=== PATIENT | male | born 1985 | race Caucasian/White ===

== ENCOUNTER 2019-03-29 17:23 | Emergency (ER) | payer OTHER ==
[~2019-03-29] VITALS: Ht 170.2 cm; Wt 84.4 kg
[~2019-03-29 17:23] MED LIST: Amoxicillin500 MG PO; CEPH500 PO; CLIN300 PO; CYCL10 PO; Cleocin HCl300 MG PO; Cyclobenzaprine5 MG PO; IBUP600 PO; IBUP800 PO; Norco 5-325 Ta1 EACH PO; OXYACE7.5T PO; Valium5 MG PO
[2019-03-30] MEDS ORDERED: Bactrim Ds Tab1 EACH PO (00:27)
== END 2019-03-30 00:49 | disposition home or self-care (01) ==
LOC: ER 17:23
DX: L05.91 Pilonidal cyst without abscess (principal); F17.210 Nicotine dependence, cigarettes, uncomplicated; Z88.1 Allergy status to other antibiotic agents
CPT/HCPCS: 10081; 99283-25; A9270

== ENCOUNTER 2020-06-01 21:13 | Emergency (ER) | payer OTHER ==
[~2020-06-01] VITALS: Ht 172.7 cm; Wt 83.5 kg
[~2020-06-01 21:13] MED LIST changes: +Bactrim Ds Tab1 EACH PO
[2020-06-02] MEDS ORDERED: Monodox100 MG PO (11:24)
[2020-06-02] MEDS ORDERED: Bactrim Ds Tab1 EACH PO (11:24)
== END 2020-06-01 21:26 | disposition home or self-care (01) ==
LOC: ER 21:13
DX: J34.0 Abscess, furuncle and carbuncle of nose (principal); F17.210 Nicotine dependence, cigarettes, uncomplicated; Z88.1 Allergy status to other antibiotic agents
CPT/HCPCS: 99283

== ENCOUNTER 2020-06-02 10:38 | Emergency (ER) | payer OTHER ==
[~2020-06-02] VITALS: Ht 172.7 cm; Wt 83.9 kg
[2020-06-02] MEDS ORDERED: Monodox100 MG PO (11:24)
[2020-06-02] MEDS ORDERED: Bactrim Ds Tab1 EACH PO (11:24)
== END 2020-06-02 11:35 | disposition home or self-care (01) ==
LOC: ER 10:38
DX: K13.0 Diseases of lips (principal); F17.210 Nicotine dependence, cigarettes, uncomplicated; Z88.1 Allergy status to other antibiotic agents
CPT/HCPCS: 87070; 87075; 87077; 87147; 87186; 87205; 99283

== ENCOUNTER 2021-08-24 09:22 | Emergency (ER) | payer OTHER ==
[~2021-08-24] VITALS: Ht 172.7 cm; Wt 94.3 kg
[~2021-08-24 09:22] MED LIST changes: +Monodox100 MG PO
[2021-08-24] MEDS ORDERED: CYCL10 PO (10:07)
== END 2021-08-24 10:25 | disposition home or self-care (01) ==
LOC: ER 09:22
DX: S39.012A Strain of muscle, fascia and tendon of lower back, initial encounter (principal); F17.200 Nicotine dependence, unspecified, uncomplicated; Z88.1 Allergy status to other antibiotic agents; X58.XXXA Exposure to other specified factors, initial encounter
CPT/HCPCS: 96372; 99283-25; J1885

== ENCOUNTER 2022-05-26 08:53 | Emergency (ER) | payer OTHER ==
[~2022-05-26] VITALS: Ht 172.7 cm; Wt 96.6 kg
[2022-05-26] MEDS ORDERED: SULTRIDS PO (09:49)
== END 2022-05-26 10:14 | disposition home or self-care (01) ==
LOC: ER 08:53
DX: M54.50 Low back pain, unspecified (principal); G89.29 Other chronic pain; L03.90 Cellulitis, unspecified; F17.210 Nicotine dependence, cigarettes, uncomplicated; Z88.1 Allergy status to other antibiotic agents
CPT/HCPCS: A9270; J1885

== ENCOUNTER 2023-01-21 22:50 | Emergency (ER) | payer OTHER ==
[~2023-01-21] VITALS: Ht 172.7 cm; Wt 90.7 kg
[~2023-01-21 22:50] MED LIST changes: +SULTRIDS PO
[2023-01-21 23:23] VITALS: BP 132/86
[2023-01-22] MEDS ORDERED: SULTRIDS PO (02:10)
== END 2023-01-22 02:57 | disposition home or self-care (01) ==
LOC: ER 22:50
DX: L05.01 Pilonidal cyst with abscess (principal); F17.210 Nicotine dependence, cigarettes, uncomplicated; Z88.1 Allergy status to other antibiotic agents
CPT/HCPCS: 10061; 10081; 99282-25; A9270

== ENCOUNTER 2023-03-25 05:53 | Day surgery (SDC) | payer BC, OTHER ==
[2023-03-25] VITALS (11 sets, daily range): BP systolic 97–125; BP diastolic 48–80
[~2023-03-25] VITALS: Ht 172.7 cm; Wt 87.3 kg
[2023-03-25] MEDS ORDERED: TRAM50 PO (06:39)
--- NOTE | 2023-03-25 07:30 | NUR ---
Ambulatory in Day SurgeryPre-Op teaching done. Pt verbalizes understanding. History, Chart, Medications and Allergies reviewed before start of procedure.Patient confirms NPO status and agrees with scheduled surgery. Patient States Post-Procedure ride home has been arranged.
--- NOTE | 2023-03-25 11:05 | NUR ---
Patient up to Ambulate independently. Gait steady. Discharge instructions reviewed with patient. Patient verbalizes understanding. Copy given to patient to take home. Discharged via wheelchair to private car for ride home.
== END 2023-03-25 11:05 | disposition home or self-care (01) ==
LOC: ORSCMMR 05:53 → ORD 07:30 → ORSCMMR 07:30 → ORD 08:00 → ORSCSDS 08:00 → ORSCMMR 11:05
PROVIDERS: Surgery
PROC: 0HX8XZZ Transfer Buttock Skin, External Approach (ICD-10-PCS; principal; 2023-03-25 07:30)
DX: L05.01 Pilonidal cyst with abscess (principal); F17.210 Nicotine dependence, cigarettes, uncomplicated
CPT/HCPCS: 88304; A9270; J1100; J1885; J2250; J2405; J2543; J2704; J3010; J7120

== ENCOUNTER 2023-04-18 12:50 | Emergency (ER) | payer BC, OTHER ==
[~2023-04-18] VITALS: Ht 172.7 cm; Wt 88.9 kg
[~2023-04-18 12:50] MED LIST changes: +TRAM50 PO
[2023-04-18 13:30] VITALS: BP 111/83
[2023-04-18] MEDS ORDERED: Bactrim Ds Tab1 EACH PO (13:32)
== END 2023-04-18 13:41 | disposition home or self-care (01) ==
LOC: ER 12:50
DX: J34.0 Abscess, furuncle and carbuncle of nose (principal); Z88.1 Allergy status to other antibiotic agents; F17.210 Nicotine dependence, cigarettes, uncomplicated
CPT/HCPCS: 99282

== ENCOUNTER 2025-06-21 21:02 | Emergency (ER) | payer OTHER ==
[~2025-06-21] VITALS: Ht 172.7 cm; Wt 93.0 kg
[2025-06-21] MEDS ORDERED: NS 1,000 ML IV SCH (21:05)
[2025-06-21] MEDS ORDERED: Ketorolac Tromethamine 15mg Vial IV ONE (21:10)
[2025-06-21] MEDS ORDERED: Prochlorperazine Edisylate 10 mg Vial IV ONE (21:10)
[2025-06-21] MEDS ORDERED: DiphenhydrAMINE HCl 50 MG/ML 1ML Vial IV ONE (21:10)
[2025-06-21 22:02] LABS: BASOPHILS ABSOLUTE AUTO 0.09 K/mm3 (0.00-0.23); BASOPHILS PERCENT AUTO 1 % (0-2); EOSINOPHILS ABSOLUTE AUTO 0.26 K/mm3 (0.00-0.68); EOSINOPHILS PERCENT AUTO 3 % (0-6); Hematocrit 42.0 % (37.0-53.0); Hemoglobin 14.1 g/dL (13.5-17.5); IMMATURE GRAN ABSOLUTE AUTO 0.06 K/mm3 (0.00-0.10); IMMATURE GRAN PERCENT AUTO 1 % (0-1); LYMPHOCYTES ABSOLUTE AUTO 2.60 K/mm3 (0.84-5.20); LYMPHOCYTES PERCENT AUTO 34 % (21-46); MONOCYTES ABSOLUTE AUTO 1.26 K/mm3 (0.16-1.47); MONOCYTES PERCENT AUTO 16 % (4-13); Mean Corpuscular HGB Conc 33.6 g/dL (31.5-36.5); Mean Corpuscular Volume 88 fL (80-100); NEUTROPHILS ABSOLUTE AUTO 3.45 K/mm3 (1.96-9.15); NEUTROPHILS PERCENT AUTO 45 % (41-73); NRBC ABSOLUTE 0.00 K/mm3 (0.00-0.02); NRBC Auto 0.0 /100 WBC (0.0-0.2); Platelet Count 284 K/mm3 (150-400); RDW Coefficient Variation 13.2 % (11.7-14.2); RDW Standard Deviation 42.8 fL (35.1-46.3)
[2025-06-21 22:20] LABS: Alanine Aminotransfer (ALT/SGP 35.0 U/L (12-78); Albumin, Blood 4.1 g/dL (3.4-5.0); Albumin/Globulin Ratio 1.0 (0.8-1.8); Anion Gap 10.0 mmol/L (3-11); Aspartate Aminotrans (AST/SGOT 29.0 U/L (12-37); Bilirubin, Total 0.2 mg/dL (0.1-1.0); Blood Urea Nitrogen 13.0 mg/dL (8-24); CO2, Blood 23.0 mmol/L (21-32); Calcium, Blood 8.8 mg/dL (8.5-10.1); Chloride, Blood 109.0 mmol/L (98-108); Creatinine, Blood 0.94 mg/dL (0.60-1.20); Globulin, Blood 4.3 g/dL (2.2-4.0); Glucose, Blood 109.0 mg/dL (70-99); Magnesium, Blood 2.1 mg/dL (1.6-2.4); Phosphorus, Blood 3.6 mg/dL (2.5-4.9); Potassium, Blood 3.3 mmol/L (3.5-5.5); Sodium, Blood 139.0 mmol/L (136-145); Total Protein, Blood 8.4 g/dL (6.4-8.2)
[2025-06-21 23:00] VITALS: BP 135/80
== END 2025-06-21 23:05 | disposition home or self-care (01) ==
LOC: ER 21:02
PROVIDERS: Physician Assistant
DX: G43.909 Migraine, unspecified, not intractable, without status migrainosus (principal); F17.210 Nicotine dependence, cigarettes, uncomplicated; Z88.1 Allergy status to other antibiotic agents
CPT/HCPCS: 80053; 83735; 84100; 85025; 96361; 96374; 96375; 99283-25; J0780; J1200; J1885; J7030